=== PATIENT | female | born 1940 | race Caucasian/White ===

== ENCOUNTER 2019-04-06 18:55 | Inpatient (IN) ==
[2019-04-06] MEDS ORDERED: hydrALAZINE 20 MG/1 ML VIAL IV STA (19:40)
[2019-04-06] MEDS ORDERED: ONDANSETRON 4 MG/2 ML VIAL IV STA (19:41)
[2019-04-06] MEDS ORDERED: ONDANSETRON 4 MG/2 ML VIAL IV PRN (20:16)
[2019-04-06] MEDS ORDERED: ACETAMINOPHEN 325 MG TABLET PO PRN (20:16)
[2019-04-06] MEDS ORDERED: NICOTINE 21 MG/24 HR PATCH TRANSDERM PRN (20:16)
[2019-04-06] MEDS ORDERED: hydrALAZINE 20 MG/1 ML VIAL IV PRN (20:16)
[2019-04-06 20:29] LABS: Basophils # 0.1 10*3/uL (0.0-0.2); Basophils % 0.4 % (0.0-0.8); Eosinophils % 0.2 % (0.00-10.9); Hematocrit 39.9 VOL% (35.7-47.0); Hemoglobin 13.2 GM/DL (12.0-16.0); Immature Granulocytes Absolute 0.16 #; Lymphocytes # 1.7 10*3/uL (1.4-4.0); Lymphocytes % 10.5 % (21.3-54.2); Mean Corpuscular HGB Conc 33.1 GM/DL (32-36); Mean Corpuscular Volume 85.6 FL (87-102); Monocytes % 5.4 % (1.7-12.7); Neutrophils % 82.5 % (38.7-73.9); Platelet Count 148 T/CUMM (130-400); Red Blood Count 4.66 MC/CUMM (3.8-5.5); Red Cell Distribution Width 15.5 % (9.3-17.3); White Blood Count 16.2 T/CUMM (4-12)
[2019-04-06 20:35] LABS: PT Patient Result 10.7 SECS (9.6-12.2)
[2019-04-06 20:38] LABS: Apearance,Urine CLEAR (Clear); Bilirubin,Urine Negative (Negative); Blood, Urine Negative (Negative); Glucose,Urine (UA) Negative (Negative); Ketones,Urine Negative (Negative); Mucus,Urine Occasional /LPF (Occasional); Nitrite,Urine Negative (Negative); Protein,Urine Negative; RBC,Urine 8 /HPF (0-4); Squamous Epithelial Cell,Urine Occasional /HPF (0-10); Urine Color Straw (Yellow); Urine Specific Gravity 1.011 (1.001-1.035); Urine Urobilinogen < 2.0 EU/DL (0.2-1.0); WBC,Urine 2 /HPF (0-6)
[2019-04-06 20:47] LABS: Alanine Aminotransferase 41 U/L (13-56); Albumin 3.7 G/DL (3.4-5.0); Alkaline Phosphatase 48 U/L (45-117); Aspartate Amino Transferase 55 U/L (0-37); Blood Urea Nitrogen 15 MG/DL (7-18); Calcium 8.2 MG/DL (8.5-10.1); Estimated Glom Filtration Rate 44 ML/MIN; Glucose 101 MG/DL (74-106); Total Protein 7.1 G/DL (6.4-8.3)
[2019-04-06 21:35] LABS: Anisocytosis Slight; Hypochromasia 1+; Microcytosis 1+
[2019-04-06 21:36] LABS: Platelet Estimate Normal
[2019-04-06] MEDS: SODIUM CHLORIDE 0.9% 1,000 ML IV SCH (22:30)
[2019-04-06] MEDS ORDERED: HYDROmorphone 2 MG/1 ML VIAL IV PRN (23:26)
[2019-04-07] MEDS: LEVOTHYROXINE 175 MCG TABLET PO SCH (06:48)
[2019-04-07] MEDS ORDERED: ENOXAPARIN 40 MG/0.4 ML SYRINGE SUBCUT SCH (08:00)
[2019-04-07] MEDS: LOSARTAN 50 MG TABLET PO SCH (10:14)
[2019-04-07] MEDS ORDERED: ceFAZolin 1,000 MG in SYRINGE 1 EACH IV ONE (11:00)
[2019-04-07] MEDS ORDERED: diphenhydrAMINE CAP 25 MG CAPSULE PO PRN (13:20)
[2019-04-07] MEDS ORDERED: LACTULOSE 20 GM/30 ML UDCUP PO PRN (13:20)
[2019-04-07] MEDS ORDERED: MAGNESIUM HYDROXIDE SUSP 30 ML UDCUP PO PRN (13:20)
[2019-04-07] MEDS ORDERED: BISACODYL 10 MG SUPP RECTAL PRN (13:20)
[2019-04-07] MEDS ORDERED: PROMETHAZINE 25 MG/1 ML VIAL IM PRN (13:20)
[2019-04-07] MEDS ORDERED: TEMAZEPAM 7.5 MG CAPSULE PO PRN (13:20)
[2019-04-07] MEDS ORDERED: PROMETHAZINE INJ 25 MG in SODIUM CHLORIDE 0.9% 50 ML IV PRN (13:42)
[2019-04-07] MEDS ORDERED: diphenhydrAMINE 50 MG/1 ML VIAL IV PRN (13:42)
[2019-04-07] MEDS ORDERED: HYDROmorphone 2 MG/1 ML VIAL IV PRN (13:42)
[2019-04-07] MEDS ORDERED: ONDANSETRON 4 MG/2 ML VIAL IV PRN (13:42)
[2019-04-07] MEDS ORDERED: propofoL 200 MG/20 ML VIAL IV ONE (13:43)
[2019-04-07] MEDS ORDERED: ONDANSETRON 4 MG/2 ML VIAL ONE (13:44)
[2019-04-07] MEDS ORDERED: LIDOCAINE 2% 5 ML VIAL ONE (13:44)
[2019-04-07] MEDS ORDERED: fentaNYL 100 MCG/2 ML VIAL ONE (13:44)
[2019-04-07] MEDS ORDERED: SEVOFLURANE 1 UNIT/15 MINUTE INH ONE (13:44)
[2019-04-07] MEDS ORDERED: ePHEDrine 50 MG/ML AMP ONE (13:44)
[2019-04-07] MEDS ORDERED: ROCURONIUM 100 MG/10 ML VIAL IV ONE (13:45)
[2019-04-07] MEDS ORDERED: NEOSTIGMINE 10 MG/10 ML VIAL ONE (13:45)
[2019-04-07] MEDS ORDERED: LACTATED RINGERS 1,000 ML IV ONE (13:45)
[2019-04-07] MEDS ORDERED: GLYCOPYRROLATE 0.4 MG/2 ML VIAL ONE (13:45)
[2019-04-07] MEDS ORDERED: PHENYLEPHRINE 1 MG/10 ML SYRINGE IV ONE (13:45)
[2019-04-07] MEDS ORDERED: ETOMIDATE 40 MG/20 ML VIAL IV ONE (13:45)
[2019-04-07] MEDS: SODIUM CHLORIDE 0.9% 1,000 ML IV SCH ×2 (13:55→17:10)
[2019-04-07] MEDS: HYDROmorphone 2 MG/1 ML VIAL IV PRN ×2 (15:28→20:42)
[2019-04-07] MEDS: ceFAZolin 1,000 MG in SYRINGE 1 EACH IV SCH (17:05)
[2019-04-07] MEDS: DOCUSATE SODIUM 100 MG CAPSULE PO SCH (20:42)
[2019-04-08] MEDS: ceFAZolin 1,000 MG in SYRINGE 1 EACH IV SCH (02:35)
[2019-04-08] MEDS: HYDROmorphone 2 MG/1 ML VIAL IV PRN (04:26)
[2019-04-08 04:47] LABS: Basophils # 0.1 10*3/uL (0.0-0.2); Basophils % 0.4 % (0.0-0.8); Eosinophils # 0.1 10*3/uL (0.0-0.87); Eosinophils % 0.8 % (0.00-10.9); Hematocrit 31.6 VOL% (35.7-47.0); Hemoglobin 10.3 GM/DL (12.0-16.0); Immature Granulocytes % 0.9 %; Immature Granulocytes Absolute 0.11 #; Lymphocytes # 1.2 10*3/uL (1.4-4.0); Lymphocytes % 10.5 % (21.3-54.2); Mean Corpuscular HGB Conc 32.6 GM/DL (32-36); Mean Corpuscular Volume 85.2 FL (87-102); Mean Platelet Volume 11.5 FL (9.6-12.0); Monocytes % 4.9 % (1.7-12.7); Neutrophils % 82.5 % (38.7-73.9); Platelet Count 175 T/CUMM (130-400); Red Blood Count 3.71 MC/CUMM (3.8-5.5); Red Cell Distribution Width 15.8 % (9.3-17.3); White Blood Count 11.8 T/CUMM (4-12)
[2019-04-08 05:17] LABS: Osmolality,Calculated 278.5 MOS/KG (273-304)
[2019-04-08] MEDS: LEVOTHYROXINE 175 MCG TABLET PO SCH (05:55)
[2019-04-08] MEDS ORDERED: POTASSIUM CHLORIDE 20 MEQ TABLET PO PRN (07:50)
[2019-04-08] MEDS: LOSARTAN 50 MG TABLET PO SCH (09:40)
[2019-04-08] MEDS: DOCUSATE SODIUM 100 MG CAPSULE PO SCH ×2 (09:41→20:04)
[2019-04-08] MEDS: ENOXAPARIN 40 MG/0.4 ML SYRINGE SUBCUT SCH (09:43)
[2019-04-08] MEDS ORDERED: ALUMINUM/MAGNES/SIMETH MAX STR 30 ML UDCUP PO PRN (19:41)
[2019-04-09] MEDS: SODIUM CHLORIDE 0.9% 1,000 ML IV SCH ×2 (01:18→09:08)
[2019-04-09] MEDS: LEVOTHYROXINE 175 MCG TABLET PO SCH (05:45)
[2019-04-09] MEDS ORDERED: ALBUTEROL/IPRATROPIUM 3 ML NEB RESP TX PRN (07:26)
[2019-04-09] MEDS: LOSARTAN 50 MG TABLET PO SCH (09:08)
[2019-04-09] MEDS: ENOXAPARIN 40 MG/0.4 ML SYRINGE SUBCUT SCH (09:08)
[2019-04-09] MEDS: DOCUSATE SODIUM 100 MG CAPSULE PO SCH ×2 (09:08→20:14)
[2019-04-09] MEDS ORDERED: TUBERCULIN SKIN TEST 0.1 ML SYRINGE INTRADERM ONE (14:49)
[2019-04-10] MEDS: SODIUM CHLORIDE 0.9% 1,000 ML IV SCH (04:58)
[2019-04-10] MEDS: LEVOTHYROXINE 175 MCG TABLET PO SCH (05:37)
[2019-04-10 05:49] LABS: Basophils # 0.1 10*3/uL (0.0-0.2); Basophils % 0.5 % (0.0-0.8); Eosinophils # 0.2 10*3/uL (0.0-0.87); Eosinophils % 1.9 % (0.00-10.9); Hematocrit 25.2 VOL% (35.7-47.0); Hemoglobin 8.3 GM/DL (12.0-16.0); Lymphocytes # 1.7 10*3/uL (1.4-4.0); Lymphocytes % 16.2 % (21.3-54.2); Mean Corpuscular HGB Conc 32.9 GM/DL (32-36); Mean Corpuscular Volume 86.3 FL (87-102); Mean Platelet Volume 11.4 FL (9.6-12.0); Monocytes % 7.7 % (1.7-12.7); Neutrophils % 72.7 % (38.7-73.9); Platelet Count 178 T/CUMM (130-400); Red Blood Count 2.92 MC/CUMM (3.8-5.5); Red Cell Distribution Width 15.6 % (9.3-17.3); White Blood Count 10.4 T/CUMM (4-12)
[2019-04-10 06:10] LABS: Calcium 7.8 MG/DL (8.5-10.1); Osmolality,Calculated 279.4 MOS/KG (273-304)
[2019-04-10] MEDS ORDERED: SODIUM CHLORIDE 0.9% 1,000 ML IV PRN (08:21)
[2019-04-10] MEDS: LOSARTAN 50 MG TABLET PO SCH (08:56)
[2019-04-10] MEDS: ENOXAPARIN 40 MG/0.4 ML SYRINGE SUBCUT SCH (08:56)
[2019-04-10] MEDS: DOCUSATE SODIUM 100 MG CAPSULE PO SCH (08:56)
[2019-04-10 14:13] VITALS: BP 157/73
[2019-04-10 14:56] LABS: Hematocrit 31.5 VOL% (35.7-47.0); Hemoglobin 10.5 GM/DL (12.0-16.0)
== END 2019-04-10 14:43 | disposition swing bed (61) | DRG 470 ==
LOC: EDBD → EDUNIT# → N.ED 18:55 → N.EDINP 20:16 → N.3E 20:40
PROVIDERS: ADMIT Internal Medicine; ATTEND Internal Medicine

== ENCOUNTER 2020-12-27 14:49 | Inpatient (IN) ==
[2020-12-27 15:41] LABS: Basophils % 0.2 % (0.0-0.8); Eosinophils % 0.1 % (0.00-10.9); Hematocrit 31.3 VOL% (35.7-47.0); Hemoglobin 10.3 GM/DL (12.0-16.0); Immature Granulocytes % 0.6 %; Immature Granulocytes Absolute 0.11 #; Lymphocytes # 1.3 10*3/uL (1.4-4.0); Lymphocytes % 7.3 % (21.3-54.2); Mean Corpuscular HGB Conc 32.9 GM/DL (32-36); Mean Corpuscular Volume 82.2 FL (87-102); Mean Platelet Volume 10.5 FL (9.6-12.0); Monocytes % 7.2 % (1.7-12.7); Neutrophils % 84.6 % (38.7-73.9); Platelet Count 249 T/CUMM (130-400); Red Blood Count 3.81 MC/CUMM (3.8-5.5); Red Cell Distribution Width 14.9 % (9.3-17.3); White Blood Count 17.1 T/CUMM (4-12)
[2020-12-27 16:00] LABS: Calcium 8.3 MG/DL (8.5-10.1); Osmolality,Calculated 282.4 MOS/KG (273-304); Potassium 3.2 MMOL/L (3.5-5.1); Total Protein 6.4 G/DL (6.4-8.2)
[2020-12-27] MEDS ORDERED: DEXTROSE 50% 25 GM/50 ML VIAL IV PRN (17:11)
[2020-12-27] MEDS ORDERED: GLUCAGON 1 MG VIAL IM PRN (17:11)
[2020-12-27] MEDS ORDERED: traMADol 50 MG TABLET PO PRN (17:21)
[2020-12-27] MEDS ORDERED: HYDROmorphone 2 MG/1 ML VIAL IV STA (17:42)
[2020-12-27] MEDS ORDERED: ONDANSETRON 4 MG/2 ML VIAL IV STA (17:42)
[2020-12-27] MEDS ORDERED: POTASSIUM CHLORIDE 20 MEQ TABLET PO ONE (18:00)
[2020-12-27] MEDS: SODIUM CHLORIDE 0.9% 1,000 ML IV SCH (18:10)
[2020-12-27] MEDS: cefTRIAXone 1,000 MG in SODIUM CHLORIDE 0.9% 100 ML IV SCH (18:11)
[2020-12-27 18:19] LABS: Bacteria,Urine Occasional /HPF (Few); Bilirubin,Urine Negative (Negative); Blood, Urine Negative (Negative); Glucose,Urine (UA) Negative (Negative); Hyaline Casts,Urine 1 /LPF (0-3); Ketones,Urine Negative (Negative); Mucus,Urine Occasional /LPF (Occasional); Nitrite,Urine Negative (Negative); Protein,Urine 30 MG/DL; RBC,Urine 22 /HPF (0-4); Squamous Epithelial Cell,Urine Occasional /HPF (0-10); Urine Appearance CLEAR (Clear); Urine Color Amber (Yellow); Urine Specific Gravity 1.023 (1.001-1.035)
[2020-12-27] MEDS: POTASSIUM CHLORIDE RIDER 10 MEQ/100 ML PREMIX IV SCH ×2 (21:28→22:23)
[2020-12-27] MEDS: ENOXAPARIN 40 MG/0.4 ML SYRINGE SUBCUT SCH (21:29)
[2020-12-27] MEDS: QUEtiapine 25 MG TABLET PO SCH (21:30)
[2020-12-27] MEDS: LOSARTAN 50 MG TABLET PO SCH (21:30)
[2020-12-28] MEDS: LEVOTHYROXINE 175 MCG TABLET PO SCH (05:38)
[2020-12-28 06:20] LABS: Basophils % 0.3 % (0.0-0.8); Eosinophils # 0.2 10*3/uL (0.0-0.87); Eosinophils % 1.4 % (0.00-10.9); Hemoglobin 9.4 GM/DL (12.0-16.0); Immature Granulocytes % 0.5 %; Immature Granulocytes Absolute 0.06 #; Lymphocytes # 1.7 10*3/uL (1.4-4.0); Lymphocytes % 13.3 % (21.3-54.2); Mean Corpuscular HGB Conc 33.6 GM/DL (32-36); Mean Corpuscular Volume 83.1 FL (87-102); Mean Platelet Volume 10.8 FL (9.6-12.0); Monocytes % 7.9 % (1.7-12.7); Neutrophils % 76.6 % (38.7-73.9); Platelet Count 229 T/CUMM (130-400); Red Blood Count 3.37 MC/CUMM (3.8-5.5); Red Cell Distribution Width 14.8 % (9.3-17.3); White Blood Count 12.9 T/CUMM (4-12)
[2020-12-28 06:43] LABS: Albumin 2.6 G/DL (3.4-5.0); Bilirubin,Total 0.7 MG/DL (0.20-1.00); Calcium 8.3 MG/DL (8.5-10.1); Osmolality,Calculated 283.1 MOS/KG (273-304); Potassium 3.7 MMOL/L (3.5-5.1); Total Protein 5.8 G/DL (6.4-8.2)
[2020-12-28] MEDS ORDERED: LIDOCAINE 2% 5 ML VIAL ONE (07:10)
[2020-12-28] MEDS ORDERED: ETOMIDATE 40 MG/20 ML VIAL IV ONE (07:10)
[2020-12-28] MEDS ORDERED: propofoL 200 MG/20 ML VIAL IV ONE (07:10)
[2020-12-28] MEDS ORDERED: fentaNYL 100 MCG/2 ML VIAL ONE (07:11)
[2020-12-28] MEDS ORDERED: ROCURONIUM 50 MG/5 ML VIAL IV ONE (07:14)
[2020-12-28] MEDS ORDERED: DEXAMETHASONE 4 MG/1 ML VIAL ONE (07:24)
[2020-12-28] MEDS ORDERED: LIDOCAINE 1% 5 ML VIAL ONE (07:24)
[2020-12-28] MEDS ORDERED: BUPIVACAINE MPF 0.25% 30 ML VIAL ONE (07:24)
[2020-12-28] MEDS ORDERED: LACTATED RINGERS 1,000 ML IV ONE (08:42)
[2020-12-28] MEDS ORDERED: ACETAMINOPHEN INJ 1,000 MG/100 ML VIAL IV ONE (09:16)
[2020-12-28] MEDS ORDERED: PHENYLEPHRINE 1 MG/10 ML SYRINGE IV ONE (09:17)
[2020-12-28] MEDS ORDERED: ONDANSETRON 4 MG/2 ML VIAL ONE (09:17)
[2020-12-28] MEDS ORDERED: NEOSTIGMINE 10 MG/10 ML VIAL ONE (09:21)
[2020-12-28] MEDS ORDERED: GLYCOPYRROLATE 0.4 MG/2 ML VIAL ONE (09:21)
[2020-12-28] MEDS ORDERED: SEVOFLURANE 1 UNIT/15 MINUTE INH ONE (09:30)
[2020-12-28] MEDS ORDERED: LACTULOSE 20 GM/30 ML UDCUP PO PRN (09:32)
[2020-12-28] MEDS ORDERED: BISACODYL 10 MG SUPP RECTAL PRN (09:32)
[2020-12-28] MEDS ORDERED: ONDANSETRON 4 MG/2 ML VIAL IV PRN ×2 (09:32→10:10)
[2020-12-28] MEDS ORDERED: diphenhydrAMINE CAP 25 MG CAPSULE PO PRN (09:32)
[2020-12-28] MEDS ORDERED: MAGNESIUM HYDROXIDE SUSP 30 ML UDCUP PO PRN (09:32)
[2020-12-28] MEDS: LOSARTAN 50 MG TABLET PO SCH ×2 (09:33→20:33)
[2020-12-28] MEDS ORDERED: HYDROmorphone 2 MG/1 ML VIAL IV PRN (10:10)
[2020-12-28] MEDS: SODIUM CHLORIDE 0.9% 1,000 ML IV SCH (13:45)
[2020-12-28] MEDS: cefTRIAXone 1,000 MG in SODIUM CHLORIDE 0.9% 100 ML IV SCH (17:26)
[2020-12-28] MEDS: QUEtiapine 25 MG TABLET PO SCH (20:35)
[2020-12-28] MEDS: ENOXAPARIN 40 MG/0.4 ML SYRINGE SUBCUT SCH (20:36)
[2020-12-28] MEDS: HYDROmorphone 2 MG/1 ML VIAL IV PRN (21:02)
[2020-12-29] MEDS: HYDROmorphone 2 MG/1 ML VIAL IV PRN ×2 (04:17→21:21)
[2020-12-29] MEDS: LEVOTHYROXINE 175 MCG TABLET PO SCH (06:03)
[2020-12-29 06:57] LABS: Basophils % 0.3 % (0.0-0.8); Eosinophils % 0.1 % (0.00-10.9); Hematocrit 27.4 VOL% (35.7-47.0); Hemoglobin 8.9 GM/DL (12.0-16.0); Immature Granulocytes % 0.8 %; Immature Granulocytes Absolute 0.12 #; Mean Corpuscular HGB Conc 32.5 GM/DL (32-36); Mean Platelet Volume 11.3 FL (9.6-12.0); Monocytes % 6.6 % (1.7-12.7); Neutrophils % 85.2 % (38.7-73.9); Platelet Count 225 T/CUMM (130-400); Red Cell Distribution Width 14.9 % (9.3-17.3); White Blood Count 14.3 T/CUMM (4-12)
[2020-12-29 07:09] LABS: Calcium 8.1 MG/DL (8.5-10.1); Potassium 3.7 MMOL/L (3.5-5.1)
[2020-12-29] MEDS: LOSARTAN 50 MG TABLET PO SCH ×2 (08:42→21:15)
[2020-12-29] MEDS: PANTOPRAZOLE 40 MG TABLET PO SCH (08:42)
[2020-12-29] MEDS: SODIUM CHLORIDE 0.9% 1,000 ML IV SCH (11:14)
[2020-12-29] MEDS: ACETAMINOPHEN 325 MG TABLET PO PRN (16:08)
[2020-12-29] MEDS: cefTRIAXone 1,000 MG in SODIUM CHLORIDE 0.9% 100 ML IV SCH (17:13)
[2020-12-29] MEDS: QUEtiapine 25 MG TABLET PO SCH (21:14)
[2020-12-29] MEDS: ENOXAPARIN 40 MG/0.4 ML SYRINGE SUBCUT SCH (21:15)
[2020-12-30 06:14] LABS: Basophils % 0.2 % (0.0-0.8); Eosinophils # 0.3 10*3/uL (0.0-0.87); Eosinophils % 2.1 % (0.00-10.9); Hematocrit 23.6 VOL% (35.7-47.0); Hemoglobin 7.5 GM/DL (12.0-16.0); Immature Granulocytes % 0.6 %; Immature Granulocytes Absolute 0.07 #; Lymphocytes # 1.3 10*3/uL (1.4-4.0); Lymphocytes % 11.2 % (21.3-54.2); Mean Corpuscular HGB Conc 31.8 GM/DL (32-36); Mean Corpuscular Volume 84.6 FL (87-102); Mean Platelet Volume 11.2 FL (9.6-12.0); Monocytes % 6.8 % (1.7-12.7); Neutrophils % 79.1 % (38.7-73.9); Platelet Count 217 T/CUMM (130-400); Red Blood Count 2.79 MC/CUMM (3.8-5.5); Red Cell Distribution Width 15.1 % (9.3-17.3); White Blood Count 11.8 T/CUMM (4-12)
[2020-12-30] MEDS: LEVOTHYROXINE 175 MCG TABLET PO SCH (06:25)
[2020-12-30 06:30] LABS: Calcium 8.1 MG/DL (8.5-10.1); Osmolality,Calculated 287.7 MOS/KG (273-304); Potassium 3.4 MMOL/L (3.5-5.1)
[2020-12-30] MEDS: PANTOPRAZOLE 40 MG TABLET PO SCH (08:58)
[2020-12-30] MEDS: LOSARTAN 50 MG TABLET PO SCH ×2 (08:58→21:12)
[2020-12-30] MEDS ORDERED: SODIUM CHLORIDE 0.9% 1,000 ML IV PRN ×2 (09:02→12:48)
[2020-12-30] MEDS: SODIUM CHLORIDE 0.9% 1,000 ML IV SCH (09:10)
[2020-12-30] MEDS: ACETAMINOPHEN 325 MG TABLET PO PRN (16:50)
[2020-12-30] MEDS: cefTRIAXone 1,000 MG in SODIUM CHLORIDE 0.9% 100 ML IV SCH (21:12)
[2020-12-30] MEDS: ENOXAPARIN 40 MG/0.4 ML SYRINGE SUBCUT SCH (21:12)
[2020-12-30] MEDS: QUEtiapine 25 MG TABLET PO SCH (21:12)
[2020-12-31] MEDS ORDERED: hydrALAZINE 20 MG/1 ML VIAL IV PRN (05:08)
[2020-12-31] MEDS: LEVOTHYROXINE 175 MCG TABLET PO SCH (05:45)
[2020-12-31 05:51] LABS: Basophils % 0.3 % (0.0-0.8); Eosinophils # 0.3 10*3/uL (0.0-0.87); Eosinophils % 2.8 % (0.00-10.9); Hemoglobin 11.1 GM/DL (12.0-16.0); Immature Granulocytes % 1.3 %; Immature Granulocytes Absolute 0.15 #; Lymphocytes # 1.9 10*3/uL (1.4-4.0); Lymphocytes % 16.3 % (21.3-54.2); Mean Corpuscular HGB Conc 33.6 GM/DL (32-36); Mean Corpuscular Volume 82.3 FL (87-102); Mean Platelet Volume 10.5 FL (9.6-12.0); Monocytes % 6.1 % (1.7-12.7); Neutrophils % 73.2 % (38.7-73.9); Platelet Count 229 T/CUMM (130-400); Red Blood Count 4.01 MC/CUMM (3.8-5.5); Red Cell Distribution Width 14.4 % (9.3-17.3); White Blood Count 11.5 T/CUMM (4-12)
[2020-12-31] MEDS: HYDROmorphone 2 MG/1 ML VIAL IV PRN (06:08)
[2020-12-31] MEDS: PANTOPRAZOLE 40 MG TABLET PO SCH (09:15)
[2020-12-31] MEDS: LOSARTAN 50 MG TABLET PO SCH (09:15)
[2020-12-31 12:05] VITALS: BP 147/68
== END 2020-12-31 14:12 | disposition home health service (06) | DRG 481 ==
LOC: EDBD → EDUNIT# → N.ED 14:49 → N.EDINP 17:11 → N.3E 18:17
PROVIDERS: ADMIT Emergency Medicine; ATTEND Emergency Medicine